=== PATIENT | male | born 1995 | race Caucasian/White ===

== ENCOUNTER 2016-08-02 15:15 | Emergency (ER) | payer OTHER ==
[~2016-08-02] VITALS: Ht 182.9 cm; Wt 90.7 kg
[2016-08-02 15:23] VITALS: BP 140/79
--- NOTE | 2016-08-02 16:54 | NUR ---
PATIENT LEFT WITHOUT BEING SEEN BY DR. ALBERTO. NO FURTHER CARE PROVIDED FOR PATIENT.
== END 2016-08-02 16:26 | disposition left against medical advice (07) ==
LOC: MED 15:15
DX: L60.0 Ingrowing nail (principal); Z53.21 Procedure and treatment not carried out due to patient leaving prior to being seen by health care provider